=== PATIENT | female | born 1970 | race Caucasian/White ===

== ENCOUNTER → 2016-11-06 | Day surgery (SDC) | payer OTHER ==
[~2016-11-06] MED LIST: ACETAMINOPHEN 1000 MG/100 ML VIAL IV ONE; BUPIVACAINE/EPINEPHRINE 0.25% 50 ML VIAL ONE; KETOROLAC TROMETHAMINE 60 MG/2 ML (IM) VIAL IM ONE; LACTATED RINGER'S 1000 ML INJ 1,000 ML ONE; LIDOCAINE 1%/EPINEPHrine 1:200,000 PF SOLN 30 ML VIAL ONE; LORT5TAB PO; MIDAZOLAM HCL 2 MG/2 ML VIAL ONE; ONDANSETRON HCL 4 MG/2 ML VIAL IV PUSH ONE; PRIL20TA2 PO; PROPOFOL 200 MG/20 ML AMP IV ONE; SODIUM CHLOR 0.9% 250 ML INJ 250 ML IV ONE; VANCOMYCIN HCL 1000 MG VIAL ONE; ceFAZolin INJ 1,000 MG VIAL ONE
--- NOTE | 2016-11-09 08:14 | MP ---
cc: NIEVES TRONCOSO M.D., MOHAN L. MD DATE OF SURGERY: 11/06/2016 PREOPERATIVE DIAGNOSIS Incarcerated supraumbilical hernia. POSTOPERATIVE DIAGNOSIS Incarcerated ventral hernia. ANESTHESIA LMA. SURGEON Dr. Troncoso. ESTIMATED BLOOD LOSS Less than 30 mL. FLUIDS 400 mL crystalloid. COMPLICATIONS None. DRAINS None. SPECIMEN None. FINDINGS Ventral hernia superior to the patient's previously repaired umbilical hernia. This was incarcerated. PROCEDURE IN DETAIL The patient was taken to the operating room and placed on the operating table in the supine position. After an adequate level of laryngeal mask anesthesia was achieved the abdomen was prepped and draped in usual fashion. Time-out was taken confirming correct patient, site and procedure to be performed. Incision was made below the umbilicus in a transverse fashion and the previous incision was made somewhat longer. Dissection was carried down to the umbilical skin and this was dissected away from the patient's previous scar. The patient appeared to have a primary hernia repair and after dissecting this away she was noted to have an incarcerated ventral hernia superior to this repair site. There appeared to be two areas of preperitoneal fat protruding through a defect above the umbilicus. The defect was made slightly larger and this allowed for the fatty material to be reduced into the abdominal cavity. The umbilical repair was opened and sutures removed. This was felt to be necessary in order to reduce all of the preperitoneal fat into the abdominal cavity and allow for placement of mesh to further buttress the repair. When this had been accomplished and all of the preperitoneal fat had been taken down with either sharp dissection and electrocautery, an 8-cm Ventralex ST mesh was selected to reinforce the repair. This was brought up and placed in a retrofascial location. The mesh was then transfixed at multiple points with 0 Prolene suture. The fascia was closed over this with #1 Prolene in an interrupted fashion. Before closing with Prolene the surgeon's finger was inserted and a circular motion was utilized to confirm that there was no significant defect between sutures to allow for bowel or fat to protrude and cause recurrence. After closure of the fascia with #1 Prolene, local anesthetic was injected into the fascia. The umbilical skin was tacked back down to the fascia with a 3-0 Vicryl suture and the wound closed with interrupted 3-0 Vicryl. The skin was closed with 5-0 PDS in a running subcuticular fashion. The wound was dressed with a Steri-Strip and a 4x4 and Tegaderm applied over this. Air was aspirated from under the bandage to create a pressure dressing. An abdominal binder was applied. Sponge, needle and instrument counts were reported to be correct. The patient was extubated and taken back to the recovery room in stable condition. She tolerated the procedure well. MD NEPTALI Larry/TLL /7:26 PM /8:02 AM
== END | disposition home or self-care (01) ==
LOC: ESDC 06:41
PROVIDERS: ATTEND Surgery Trauma Surgery
DX: K43.6 Other and unspecified ventral hernia with obstruction, without gangrene (principal)
CPT/HCPCS: 00832; 49561; C1781; J0131; J0690; J1885; J2250; J2405; J3010; J3370; J7050; J7120